=== PATIENT | female | born 1950 | race Caucasian/White ===

== ENCOUNTER 2019-12-23 15:00 | Observation (INO) | payer OTHER, SELFPAY ==
[2019-12-21 11:44] VITALS: BMI 25.9
[2019-12-22] VITALS (15 sets, daily range): BP systolic 115–158; BP diastolic 59–91; PULSE 49–64; RESP 11–20; TEMP 35.7–36.6; O2SAT 90–100; BMI 25.2
--- NOTE | 2019-12-22 06:00 | DI.RAD.S_ITS ---
PROCEDURE: XR KNEE LT 1TO2V INDICATIONS: post op films TECHNIQUE: 2 view(s) of the knee acquired. COMPARISON: [facility] [place], XR KNEE ARTHRITIC SERIES LT, 11/30/2019, 10:07. FINDINGS: Bones: Patient is status post knee joint arthroplasty. Hardware components are in expected positions. Visualized bony structures are intact. Soft tissues: Overlying postoperative changes are noted. IMPRESSION: Status post knee arthroplasty as above. Dictated by: Shantal Villarreal M.D. on 12/22/2019 at 16:25 Approved by: Shantal Villarreal M.D. on 12/22/2019 at 16:25
[2019-12-22] MEDS: LACTATED RINGERS 1,000 ML 42 ML IV ×2 (10:54→14:34)
[2019-12-22] MEDS: ACETAMINOPHEN 325 MG TABLET 975 MG PO (11:06)
[2019-12-22] MEDS: MELOXICAM 7.5 MG TABLET 15 MG PO (11:07)
[2019-12-22] MEDS: PREGABALIN 75 MG CAPSULE PO (11:07)
--- NOTE | 2019-12-22 11:42 | SUR.PREOP ---
Family at bedside and supportive. No needs voiced at this time.
--- NOTE | 2019-12-22 12:32 | PM.PREOP ---
Pre-operative Note Interval Note History & Physical reviewed/Exam performed by Physician: Yes Changes to H&P: No H&P completed within 30 days and has changed as indicated here:: Plan for L TKA
--- NOTE | 2019-12-22 12:38 | SUR.PREOP ---
Patient ambulating to bathroom with minimal assistance.
[2019-12-22] MEDS: CEFAZOLIN 2 GM/100 ML FROZ.PIGGY IV ×2 (13:05→21:51)
--- NOTE | 2019-12-22 13:35 | SUR.OPER ---
Supine on padded OR bed. Pillow under head, arms secured on padded armboards <90 degree abduction. Safety belt across torso. Non-operative leg secured with tape over blanket over lower leg. Operative leg on attachable roll bar and blankets.
[2019-12-22] MEDS: TRANEXAMIC ACID 1,000 MG VIAL 1000 MG INJ ×2 (13:46→14:52)
[2019-12-22] MEDS: ROPIVACAINE 0.5% PF 5 MG/ML 20ML VIAL 60 ML INJ (13:47)
[2019-12-22] MEDS: MORPHINE 4 MG/ML INJ INJ (13:47)
[2019-12-22] MEDS: KETOROLAC 30 MG/ML VIAL IV (13:48)
[2019-12-22] MEDS: SODIUM CHLORIDE IRRIG SOLUTION 250 ML, POVIDONE-IODINE SPONGE STICKS 1 APPLIC IRR (13:49)
--- NOTE | 2019-12-22 14:53 | PM.OP.1 ---
Operative Date/Time/Diagnoses Date of procedure: 12/22/19 Time of procedure: 14:53 Pre-op diagnosis: L knee OA Post-op diagnosis: same Procedure & Clinicians Procedure: L TKA Same procedure as scheduled: Yes Indications: Left knee OA Surgeon: Celestino Daniels Control Operator: Rozina Ramirez Anesthesia Type: Spinal Operative Notes Findings: Left knee OA Closure Type: primary Specimen(s): none sent Prosthetic devices, grafts, tissues, transplants, or devices: [employer] Nephew Journey II CR size 6 left femur size 4 left tibia 10 mm CS poly 29mm oval patellar button Estimated Blood Loss (mL): 100 Blood products transfused: none Tourniquet time (min): 60 Procedure in detail: Patient was met in the preoperative holding area with the site and side of surgery marked by MD all last minute questions were answered. Patient was then brought back in the operating room where she was given a spinal anesthetic and placed supine on operating room table. A nonsterile tourniquet was placed on left thigh left lower extremity was then prepped and draped normal sterile fashion. A surgical time-out was performed verifying the site and side of surgery as well as the name of the patient. The left leg was then exsanguinated using Esmarch and the tourniquet was insufflated to 250 mm of mercury. A longitudinal incision over the left knee was then made 10. Blade through skin followed by a new 10 blade down to the level of the quadriceps tendon. Medial and lateral flaps were then elevated. A medial parapatellar arthrotomy was then performed. Hoffa's fat pad was then excised as well as a medial peel performed using a electrocautery. At this point the ACL was then removed and the lateral meniscus was excised. Femur and tibia were drilled sequentially. The 5 degree femoral cutting block was then placed. A neutral cut through the femoral cutting block was made, as the patient had a 3-5 degree flexion contracture preoperatively The intramedullary tibial ghada was then placed and the 3 degree posterior slope cutting block was positioned. Alignment was verified using a drop ghada. This was pinned in place and the tibia cut was performed. The knee was then brought into full extension and a 9 mm extension block was placed. Knee was stable in varus and valgus and was reaching full extension. This point the femoral and tibial pins were removed. The knee was then brought into flexion and the elementary school science teacher was then placed the femur was sized to a size 6 and the femoral cutting block drill holes were placed. Balance was then removed and a metal ruler was were used to verify that there is external rotation to the femoral cutting block holes. Size 6 femoral cutting block was then placed and the 5 cuts were made. A size 6 femoral trial was then placed followed by a size 5 tibial trial with a 9 mm thick polyethylene. Overall good medial to lateral balance and full extension was achieved. Tibial rotation was used marked using a floating technique. The patella was then freehand cut and drilled for a 29 mm patellar button. Knee was brought through range of motion there was a little bit all the medial liftoff of the patellar button a small lateral release was performed which rectify the issue. The femoral trial component was then removed as was the polyethylene trial. At this point there is a little bit overhang with the size 5 tibia selected a size 4 tibia which appeared to be appropriately sized the tibia was prepped for a size 4. Local injection was then placed throughout the knee taking special care in the posterior capsule. The cut surface of the tibia femur and patella were then pulse lavaged and dried. Cement was placed on the tibia and finger packed cement was also placed on the back of the tibial tray and this was then placed and malleted into place. Excess cement was removed cement was then finger packed onto the cut ends of the femur with the exception of the posterior cuts. Some was placed on the posterior condylar feet of the femoral prosthesis. This was then placed and malleted from into place. All excess cement was then removed set was then placed on the cut surface of the patella and patellar button was then clamped in place all excess cement was removed. The was then brought into full extension the lower leg was held in internal rotation and iodine soaked was then introduced to the wound and allowed to sit while the cement cured. Once cement was cured pulse lavage was used to remove the iodine from wound the knee was brought through range of motion and checked for debris. A 10 mm thick poly was also trialed which fit better. This was selected as our final size. The 10 mm poly was then inserted. I then removed the overhanging bone over the lateral edge of the femoral condyle. Medial parapatellar arthrotomy was closed using 1. Vicryl in interrupted fashion followed by a running Quill suture. Subcutaneous tissue was then closed using 2 Vicryl interrupted fashion followed by stratafix in the subcuticular layer followed by Aquacel dressing. Complications: none Post-operative Condition: stable Disposition: PACU Plan for aftercare: Weightbearing as tolerated left lower extremity. Aspirin 81 mg b.i.d. for 6 weeks. Plan is for discharge to home tomorrow.
[2019-12-22] MEDS: ONDANSETRON 4 MG/2 ML INJ IV ×2 (16:45→21:51)
[2019-12-22] MEDS: LACTATED RINGERS 1,000 ML 125 ML IV ×2 (16:46→23:30)
[2019-12-22 18:00] LABS: Add Manual Diff / Slide Review NO; Basophils Absolute Auto 0 /uL (0-100); Basophils Percent Auto 0.5 % (0-2); Eosinophils Absolute Auto 100 /uL (0-450); Eosinophils Percent Auto 1.2 % (2-4); Hematocrit 40.2 % (36-46); Hemoglobin 13.6 g/dL (12.0-16.0); Lymphocytes Absolute Auto 1700 /uL (1100-4500); Lymphocytes Percent Auto 28.9 % (25-40); Mean Corpuscular HGB Conc 33.8 % (30-36); Mean Corpuscular Hemoglobin 32.9 PG (26-34); Mean Corpuscular Volume 97.4 fL (80-100); Monocytes Absolute Auto 400 /uL (0-900); Neutrophils Absolute Auto 3800 /uL (1500-7000); Neutrophils Percent Auto 63.4 % (50-75); Platelet Count 262 X10^3/uL (150-400); Red Blood Cell Count 4.13 X10^6/uL (4.0-5.2); Red Cell Distribution Width 12.1 % (11.6-14.8); White Blood Cell Count 5.9 X10^3/uL (4.5-11.0)
[2019-12-22] MEDS: METOCLOPRAMIDE 10 MG/2 ML INJ IV (20:12)
[2019-12-22] MEDS: DOCUSATE 100 MG CAPSULE PO (21:51)
[2019-12-22] MEDS: ACETAMINOPHEN 325 MG TABLET 650 MG PO (21:51)
[2019-12-22] MEDS: ASPIRIN EC 81 MG TABLET PO (21:51)
[2019-12-23] VITALS (10 sets, daily range): BP systolic 127–156; BP diastolic 73–84; PULSE 59–76; RESP 14–20; TEMP 35.8–37.4; O2SAT 87–100
[2019-12-23] MEDS: CEFAZOLIN 2 GM/100 ML FROZ.PIGGY IV (04:51)
[2019-12-23 06:48] LABS: Hematocrit 36.5 % (36-46); Hemoglobin 12.4 g/dL (12.0-16.0)
--- NOTE | 2019-12-23 07:46 | P.PN_ITS ---
Subjective Subjective Date Patient Seen: 12/23/19 Time Patient Seen: 07:30 Interval history: POD #1 s/p LTKA with Dr. Daniels. Overnight had one episode of emesis. Has resolved, denies nausea/vomiting. Patient is doing well, complains of mild pain in left knee. Voiding without difficulty or assistance. Has not mobilized with PT. Denies fever, chills, chest pain, shortness of breath. Exam Vital Signs (past 8 hours): - 12/23/19 04:20 12/23/19 04:56 Temperature 96.4 F L Pulse Rate 59 L Respiratory Rate 16 Blood Pressure 127/73 Pulse Oximetry 100 99 Oxygen Delivery Method Nasal Cannula Oxygen Flow Rate 0 Narrative Exam Narrative: 69 yo F is laying comfortably in bed, in no apparent distress. A&Ox3. Dressing CDI, SCDs in place. Able to actively dorsiflex/plantar flex BL. Sensory function grossly intact to light touch in LE BL. Calves warm, soft, compressible, non tender to palpation BL. Dorsalis pedis 2+ BL. Objective Labs Result Diagrams: 12/23/19 06:03 Labs: Laboratory Results - last 24 hr 12/22/19 12/23/19 17:28 06:03 WBC 5.9 RBC 4.13 Hgb 13.6 12.4 Hct 40.2 36.5 MCV 97.4 MCH 32.9 MCHC 33.8 RDW 12.1 Plt Count 262 Neut % (Auto) 63.4 Lymph % (Auto) 28.9 [place] % (Auto) 6.0 Eos % (Auto) 1.2 L Baso % (Auto) 0.5 Neut # (Auto) 3800 Lymph # (Auto) 1700 [place] # (Auto) 400 Eos # (Auto) 100 Baso # (Auto) 0 Assessment & Plan Post-op Postoperative Procedures: Procedures Operation Date: 12/22/19 13:00 Actual Procedures Side Surgeon p Total Knee Arthroplasty Left Celestino Daniels MD Postoperative day: 1 Postoperative status: doing well Postoperative plan: discharge Postoperative plan narrative: Discharge home today pending physical therapy clearance Patient has oxycodone 5mg at home, requests additional medication because she will be in [place] for 2 weeks and worries about running out. I prescribed an additional #20 tabs to the #40 given at pre-op. Aspirin 81mg BID for 6 weeks for DVT prophylaxis Follow up in clinic in 2 weeks Start outpatient PT in 1 week Time Spent With Patient Time with patient: less than 15 minutes Quality VTE Deep Vein Thrombosis/Pulmonary Embolism Present on Admission: No
[2019-12-23] MEDS: ACETAMINOPHEN 325 MG TABLET 650 MG PO ×3 (08:26→22:08)
[2019-12-23] MEDS: atenoloL 50 MG TABLET 100 MG PO (08:27)
[2019-12-23] MEDS: ASPIRIN EC 81 MG TABLET PO ×2 (08:27→22:09)
[2019-12-23] MEDS: lisinopriL 20 MG TABLET 40 MG PO (08:28)
[2019-12-23] MEDS: DOCUSATE 100 MG CAPSULE PO ×2 (08:28→22:08)
[2019-12-23] MEDS: hydroCHLOROthiazide 25 MG TABLET PO (08:28)
[2019-12-23] MEDS: hydrOXYzine pamoate 25 MG CAPSULE PO ×2 (08:29→22:09)
[2019-12-23] MEDS: OXYCODONE IR 5 MG TABLET PO ×2 (08:29→12:18)
--- NOTE | 2019-12-23 09:05 | CM.DANOTE ---
Addendum entered by Irasema Victor LPN 12/23/19 14:45: Adriana reported that pt did very well in the morning session and was going to go to her brother and sister in law's home in [place] for 10 + days to recover. She planned an afternoon session just to make sure pt was still on track for d/c. Have update now that pt has been in severe pain this afternoon and with RN working to obtain stable pain management. She has not been able to participate is afternoon session yet. UR RN notes status change now to OBS. P: remains d/c to brother's home in [place] when stable for same. Either later today or tomorrow. Will check in the morning and follow accordingly is pt is still here. Addendum entered by Irasema Victor LPN 12/23/19 09:13: Went to room to see pt. Introduced self and role. She and several family members are currently in process of working with PT Adriana for the first eval. Agreed to check in with Adriana after the eval is completed and follow prn for any d/c needs that may be identified. Original Note: Discharge Planning/Care Management DCP: assessment: case received, EMR reviewed. Pt is a 69 year old female who admitted yesterday for a planned L TKA. Payer: [facility] PCP: Kalyn Muhammad (pt lives in [facility]) Admission status: in review: per ASMITA Lee. A d/c order is noted. PT has been ordered but no note is yet available. P: check in with pt and follow for d/c issues and options. CM Discharge Assessment Start: 12/23/19 09:04 Freq: Status: Active Protocol: Document 12/23/19 09:04 ITV (Rec: 12/23/19 09:05 ITV [id number]) Discharge Planning Assessment Advance Directives? No History Provided By Medical Record Prior Living Arrangements House Household Members none Whiteboard Updated in Patient Room with Yes name and ext. # of Steward/Stewardess Night Review Status In Process Pre-Anesthesia Assessment Start: 12/21/19 11:44 Freq: Status: Active Protocol: Document 12/21/19 11:44 CAB (Rec: 12/21/19 12:37 CAB [id number]) Pre-Anesthesia Assessment Patient Information Reviewed Via Chart Review Diagnostic Results BMP/CMP,EKG,Urinalysis Comment Outside labs/EKG scanned to record Primary Care Provider Kalyn Muhammad Medical Clearance Received Yes Seen Specialist in Last 12 Months Yes Specialist Seen Licensed Insurance Sales Agent,Orthopedist Comment PCP clearance scanned in and on surgery folder Primary Language Portuguese Remote Mortgage Underwriter Required No Height 170.18 cm Weight 75.296 kg Body Mass Index (BMI) 25.9 Anesthesia Review Requested No alcohol intake current Alcohol Intake Frequency Other: Occasional, hx of etoh abuse in PCP medical record Smoking Status Never smoker Pain Present Pain Reported Musculoskeletal Symptoms Joint Pain,Joint Swelling Is patient on oxygen? No Does patient have RIDER/SOB No Hx Sleep Apnea No Currently Taking a Beta Ronald Yes: Atenolol Anti-Coagulant Therapy No Has a Licensed Insurance Sales Agent Yes: Dr. Bustillo Hx Pacemaker/ICD No Pacemaker Rep Required? No Cardiac Clearance Received Yes Comment Cardiac clearance scanned and put in surgery folder Urinary Catheter Present No Hx Urinary Self Catheterization No Diabetes No Patient No Lactating No Support System Child/Children
--- NOTE | 2019-12-23 10:12 | PT.IIE ---
Current Diagnoses Unilateral primary osteoarthritis, left knee (12/22/19) Surgery Performed Operation Date: 12/22/19 13:00 Actual Procedures p Total Knee Arthroplasty(Left) - Celestino Daniels MD Surgical History (Last Updated 12/21/19 @ 12:31 by Charity Root RN) History of hysterectomy (Acute) History of surgery (Acute) Medical History (Last Updated 12/21/19 @ 12:31 by Charity Root RN) Alcohol abuse (Acute) Anemia (Acute) Depression (Acute) Herpes (Acute) HTN (hypertension) (Acute) Migraines (Acute) Osteoarthritis (Acute) PSVT (paroxysmal supraventricular tachycardia) (Acute 10/11/19) Physical Therapy Inpatient Evaluation/Re-Eval M1 PT/OT-IP Prior Functional Status Start: 12/23/19 08:46 Freq: NEEDED Status: Active Protocol: Document 12/23/19 09:42 AW (Rec: 12/23/19 10:12 AW [id number]) Medical Review Prior Functional Status Medical History Reviewed Yes Diet/Fluid Consistency Regular Communication WNL Mobility and Gait Pt was modified independent with use of SPC for up to 10- 15 minutes max or with 4WW for 30 minutes at a time. Activities of Daily Living and IADL's Indpendent with all ADL/IADL's . However, pt admits recent difficulty with lower body dressing tasks. Social History Household Members none Living Arrangements House Number of Floors (Floors) Two Floors Number of Stairs To Enter/Railing? Pt will be discharging directly to her brother and depqbq-nz-aln's house in [place]. All details in this note refer to the discharge setting - not to the pt's home in [place]. 1 JIGNESH on main level, no railing. 15 steps with left rail descending from main level down to basement where pt had planned to stay. However, pt is able to stay on main level if needed. Alternatively, she can access the basement on an outdoor gently sloped path to the back of the house. Family states the path is partially paved, partially grass, and partially packed gravel. 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 She will be discharging to her brother and jrdcwl-wi-ecy's home in [place] where she will stay for 10 days or longer if needed. M2 PT-IP Current Condition Start: 12/23/19 08:46 Freq: NEEDED Status: Active Protocol: Document 12/23/19 09:42 AW (Rec: 12/23/19 10:12 AW [id number]) Physical Therapy Current Condition Current Condition Evaluation Date 12/23/19 Treatment Diagnosis L TKA; impaired mobility Onset Date 12/22/19 Weight Bearing Status Weight Bearing Status Weight Bear as Tolerated M3 PT-IP Subjective Start: 12/23/19 08:46 Freq: NEEDED Status: Active Protocol: Document 12/23/19 09:42 AW (Rec: 12/23/19 10:12 AW [id number]) Subjective Physical Therapy Visit Type Type Initial Evaluation Visit Start Time 08:54 Visit Stop Time 09:37 Total Visit Minutes 43 Notes Pt's family arrived intermediate [facility], observed the mobility assessment and asked appropriate questions about how to assist the pt. Number of WAREHOUSE GENERAL LABORER Visits 0 Physical Therapy Visit Comments Patient Comments Pt feeling ready to try to walk Patient Goals Plans to discharge to her brother's home for assistance. Ultimately hopes to return to work as standing/walking tolerance improves. Therapy Pain Assessment Pain When Pain Assessed During Mobility Location Left Anterior Knee Intensity 6 Scale Used 5/10 at rest; 6/10 with mobility Pain Management Techniques Apply Cold,Timing of Activity with Medications M4 PT-IP Mobility and Gait Start: 12/23/19 08:46 Freq: NEEDED Status: Active Protocol: Document 12/23/19 09:42 AW (Rec: 12/23/19 10:12 AW [id number]) PT-Bed Mobility Assessment Supine to Sit Supine to Sit Standby Assistance Scooting Scooting to Edge of Bed Standby Assistance PT-Transfer Assessment Sit to and From Stand Sit to and from Stand Contact Guard Assistance,1 Person Assistance,Use of Upper Extremities Equipment Transfer Assistive Device Gait Belt,Front Wheeled Walker Orthotic/Prosthetic Devices or Brace: No Transfers Transfer Destination Chair Transfer Technique pt ambulated with FWW Transfer Ability Level of Assist Contact Guard Assistance,Use of Upper Extremities Comments Mobility Comments From flattened bed, pt completed supine to sit with verbal cues for moving her operative leg with assist from nonoperative leg SBA. She sat EOB without UE support and stood using FWW CGA and cues for positioning of the LLE. She ambulated in the halls and returned to the room to transfer to the chair SBA, demonstrating good eccentric control of descent. She was positioned in the chair with fresh ice packs applied, call light and table within reach, family in room visiting. Gait Assessment Gait Gait Assistance Required: Standby Assistance Distance (Feet) 200 Able to Maintain Weight Bearing Status Yes During Gait Assistive Devices Assistive Device Gait Belt,Front Wheeled Walker Orthotic/Prosthetic Devices or Brace: No Gait Deviations General Gait Pattern Antalgic,Decreased Stride Length,Decreased Feet Clearance,Flexed Trunk,Step-to Gait Factors Limiting Gait Function Factors Limiting Gait Function Decreased Activity Tolerance, Decreased Strength,Limited Range of Motion,Pain Comments Gait Comments Pt ambulated in the halls with FWW SBA. Gait was characterized by toe walking and step-to pattern initially. Pt was able to correct to flat foot landing and swing- through pattern with decreased step length in response to verbal cues. Stair Climbing Assessment Evaluation Level of Assist On Stairs Standby Assistance,Contact Guard Assistance,1 Person Assistance Devices Stair Climbing Assistive Devices Left Railing,Right Railing Technique/Endurance Stair Climbing Direction Ascend and Descend Stair Climbing Technique Step to Step Number of Steps Climbed 3 Query Text: Stair Climbing Set # Repetitions (reps) 2 Comments Stair Climbing Comments Pt completed first set using B rails SBA. She attempted second set with only right rail ascending but was unable, finishing with B rails. Will attempt stairs with right rail ascending and SPC in opposite hand at afternoon session. PT-Balance Assessment Sitting Balance and Reactions Static Sitting Balance Ability Normal Dynamic Sitting Balance Ability Normal Standing Balance and Reactions Static Standing Balance Ability Good Dynamic Standing Balance Ability Good Device Used FWW M5 PT-IP Objective Assessments Start: 12/23/19 08:46 Freq: NEEDED Status: Active Protocol: Document 12/23/19 09:42 AW (Rec: 12/23/19 10:12 AW [id number]) Orientation Orientation/Cognition Level of Alertness Alert Orientation Name,Day of Week,Place, Situation Language Function Ability No Deficits Noted Safety Awareness Understands Safety Issues Memory Description No Deficits Noted Gross Range of Motion Upper Extremity ROM Assessment Within Functional Limits Lower Extremity ROM Assessment Within Functional Limits Strength Upper Extremity Strength Assessment Within Functional Limits Comments Strength Comments RLE grossly 4+/5 Coordination Assessment Gross Coordination Gross Coordination WNL Sensation Assessment Sensation Gross Sensation WNL M6 PT-IP Treatment Start: 12/23/19 08:46 Freq: NEEDED Status: Active Protocol: Document 12/23/19 09:42 AW (Rec: 12/23/19 10:12 AW [id number]) Physical Therapy Treatment Exercises Exercises Ankle Pumps,Quad Sets,Heel Slides,Passive Knee Extension Hang Education Education Provided Precautions,Weight Bearing Status,Post-Op Packet,Safety M7 PT-IP Assessment and Plan Start: 12/23/19 08:46 Freq: NEEDED Status: Active Protocol: Document 12/23/19 09:42 AW (Rec: 12/23/19 10:12 AW [id number]) PT Summary Assessment and Plan Potential Rehabilitation Potential Excellent Status of Condition at Evaluation Stable Summary Impairments Pain,ROM,Strength,Balance,Bed Mobility,Transfers,Gait, Activity Tolerance Assessment Summary Kathy is a 69 yo woman seen for PT evaluation on POD1 following L TKA. At recent baseline, she has been modified independent with use of 4WW or SPC depending on situation. She required SBA to CGA for all mobility - including stairs - on evaluation and will benefit from one more actute PT session before discharge with medical clearance. PT recommends she plan to either stay on the main level for the first few days or to use the outside path to access the basement. Once cleared, she will be safe to discharge to her brother and nidwts-rw-zlq' s home with their assist and with outpatient PT which is already set up. Goals Bed Mobility Goal Independent Transfer Goal Independent,Front Wheeled Walker Gait Goal Independent,Front Wheel Walker Gait Distance 200 Other Goals - up/down 1 step with FWW SBA - practice stairs using R rail ascending and SPC for eventual stair climbing in d/c setting Days to Meet Goals 1 Frequency of Treatment Frequency Of Treatment Twice a Day Treatment Plan Physical Therapy Treatment Plan Bed Mobility Training,Transfer Training,Gait Training, Therapeutic Exercise,Balance Retraining,Post Op Education, Discharge Planning,Hot or Cold Pack,Neuromuscular Re-ed, Coordination Retraining,Manual Therapy Other Recommendations and Next Treatment stair training with family Focus Recommendations To Nursing Amount of Assist Needed Standby Assistance Discharge Recommendations PT Discharge Recommendations Home with Assistance, Outpatient PT Transportation Needs at Discharge Private Vehicle
[2019-12-23] MEDS: HYDROMORPHONE 0.5 MG INJ 0.2 MG IV ×4 (13:08→22:57)
[2019-12-23] MEDS: OXYCODONE IR 5 MG TABLET 10 MG PO ×3 (15:37→22:57)
[2019-12-23] MEDS: ONDANSETRON 4 MG/2 ML INJ IV (15:37)
[2019-12-23] MEDS: HYDROMORPHONE 0.5 MG INJ IV (15:38)
--- NOTE | 2019-12-23 16:13 | PC.NURSE ---
Pt expressed concern this morning regarding swelling in Left leg with mild pain; PO oxycodone administered with breakfast; @ 1200 patient reports severe pain; PO oxycodone; severe pain continues; IV dilaudid X2; c/m/s positive; PPP; swelling to left leg WNL; Message to PA faxed to surgery; @ 1500 PONCHO Muro ordered increase in Oxycodone and IV dialudid NoW dose
--- NOTE | 2019-12-23 16:25 | PT.IPTN ---
Current Diagnoses Unilateral primary osteoarthritis, left knee (12/23/19) Surgery Performed Operation Date: 12/22/19 13:00 Actual Procedures p Total Knee Arthroplasty(Left) - Celestino Daniels MD Physical Therapy Treatment Note M2 PT-IP Current Condition Start: 12/23/19 08:46 Freq: NEEDED Status: Active Protocol: Document 12/23/19 09:42 AW (Rec: 12/23/19 10:12 AW [id number]) Physical Therapy Current Condition Current Condition Evaluation Date 12/23/19 Treatment Diagnosis L TKA; impaired mobility Onset Date 12/22/19 Weight Bearing Status Weight Bearing Status Weight Bear as Tolerated M3 PT-IP Subjective Start: 12/23/19 08:46 Freq: NEEDED Status: Active Protocol: Document 12/23/19 14:05 SP (Rec: 12/23/19 17:09 SP [email or web address]) Subjective Physical Therapy Visit Type Type Treatment Note Visit Start Time 14:05 Visit Stop Time 16:25 Total Visit Minutes 29 Notes Pt required split treatment ( 1405- 1420, [id number]) secondary to pain in L knee. Pt's family observed transfer chair to bed with report of increased pain needing to lay down first visit. Number of LIVESTOCK FARM MANAGER Visits 1 Physical Therapy Visit Comments Patient Comments I need to lay down, I am in so much pain sitting in this chair. I am not going to be able to do the stairs or caregiver training right now. Patient Goals Current goal is to get pain under control to be able to discharge to her brother's home for assistance. Ultimately hopes to return to work as standing/walking tolerance improves. Therapy Pain Assessment Pain When Pain Assessed At Rest Pain Present Pain Present Pain Reported Location Left Anterior Knee Intensity 10 Scale Used 10/10 at rest and mobility. Pain Management Techniques Apply Cold,Modification of Treatment,Re-positioning, Timing of Activity with Medications M4 PT-IP Mobility and Gait Start: 12/23/19 08:46 Freq: NEEDED Status: Active Protocol: Document 12/23/19 14:05 SP (Rec: 12/23/19 17:09 SP [email or web address]) PT-Bed Mobility Assessment Sit to Supine Sit to Supine Moderate Assistance,1 Person Assistance,Bedrails PT-Transfer Assessment Sit to and From Stand Sit to and from Stand Minimal Assistance,1 Person Assistance,Use of Upper Extremities Equipment Transfer Assistive Device Gait Belt,Front Wheeled Walker Orthotic/Prosthetic Devices or Brace: No Transfers Transfer Destination Bed Transfer Technique Stand Step Pivot Transfer Ability Level of Assist Contact Guard Assistance,Use of Upper Extremities Comments Mobility Comments Pt was reclined up in chair when arrived reporting 10/10 pain in L knee. Pt stated she is not going to be able to do any caregiver training, gait or stair mgt when arrived. Pt requested need to get back to bed to put leg up and possible help with pain in L knee. Sit to stand Min A using FWW, CGA with cuing for body and FWW positioning around corner of the chair and side step up EOB . Pt requried Mod A for LLE into bed while used bed rails to support trunk stability. Pt required full LLE assist lift to position pillows under for comfort and ice pack on L knee for assist pain control. Nursing has been assisting patient with meds for pain as well. LIVESTOCK FARM MANAGER discussed would return later to assess further progression with agreement. Pt was laying in bed with alarm armed, call light and all needs in reach, Family member in room when left. LIVESTOCK FARM MANAGER returned approx 2 hrs later and stated little less but still L knee still pretty painful, agreed to assist with repositioning onto R then L side for comfort and cold pack donning. Pt very restless, declined cold pack for now and propped legs with pillows for comfort with minimal success. Pt had call light and all needs inreach with bed alarm continue armed. LIVESTOCK FARM MANAGER communicated with DC planning team x2 for updates on patient progress in PT, reported will be changed to OBS and continued stay tonight . Gait Assessment Gait Gait Assistance Required: Contact Guard Assist Distance (Feet) 2 Able to Maintain Weight Bearing Status Yes During Gait Assistive Devices Assistive Device Gait Belt,Front Wheeled Walker Orthotic/Prosthetic Devices or Brace: No Gait Deviations General Gait Pattern Antalgic,Decreased Stride Length,Decreased Feet Clearance,Flexed Trunk,Step-to Gait Factors Limiting Gait Function Factors Limiting Gait Function Decreased Activity Tolerance, Decreased Strength,Limited Range of Motion,Pain,Poor Balance Comments Gait Comments Pt transferred chair to bed step to gait with cuing for obstacle mgt using FWW around chair 2 ft, CGA for safety, cued for LLE repostioning and try to knee bend. Stair Climbing Assessment Comments Stair Climbing Comments unable to assess secondary to pain 10/10 PT-Balance Assessment Sitting Balance and Reactions Static Sitting Balance Ability Normal Dynamic Sitting Balance Ability Normal Standing Balance and Reactions Static Standing Balance Ability Fair Dynamic Standing Balance Ability Poor Device Used FWW M5 PT-IP Objective Assessments Start: 12/23/19 08:46 Freq: NEEDED Status: Active Protocol: Document 12/23/19 09:42 AW (Rec: 12/23/19 10:12 AW [id number]) Orientation Orientation/Cognition Level of Alertness Alert Orientation Name,Day of Week,Place, Situation Language Function Ability No Deficits Noted Safety Awareness Understands Safety Issues Memory Description No Deficits Noted Gross Range of Motion Upper Extremity ROM Assessment Within Functional Limits Lower Extremity ROM Assessment Within Functional Limits Strength Upper Extremity Strength Assessment Within Functional Limits Comments Strength Comments RLE grossly 4+/5 Coordination Assessment Gross Coordination Gross Coordination WNL Sensation Assessment Sensation Gross Sensation WNL M6 PT-IP Treatment Start: 12/23/19 08:46 Freq: NEEDED Status: Active Protocol: Document 12/23/19 14:05 SP (Rec: 12/23/19 17:09 SP [email or web address]) Physical Therapy Treatment Education Education Provided Precautions,Weight Bearing Status,Post-Op Packet,Safety M7 PT-IP Assessment and Plan Start: 12/23/19 08:46 Freq: NEEDED Status: Active Protocol: Document 12/23/19 14:05 SP (Rec: 12/23/19 17:09 SP [email or web address]) PT Summary Assessment and Plan Potential Rehabilitation Potential Excellent Status of Condition at Evaluation Stable Summary Impairments Pain,ROM,Strength,Balance,Bed Mobility,Transfers,Gait, Activity Tolerance Assessment Summary Pt decreased activity tolerance this afternoon secondary to L knee pain at rest and WB. Nursing assisted patient with pain meds to support and PT provided cold pack withminimal success. Provided split session. See mobility comments. She required Min sit to stand, CGA pivot tranfer using FWW and Mod- M ax A of LLE into bed and repositioning in bed for comfort positioning. Pt will benefit from one more actute PT session before discharge for gait, stair mgt. PT recommends she plan to either stay on the main level for the first few days or to use the outside path to access the basement. Once cleared, she will be safe to discharge to her brother and zsmhfr-kd-oro' s home with their assist and with outpatient PT which is already set up. Goals Bed Mobility Goal Independent Transfer Goal Independent,Front Wheeled Walker Gait Goal Independent,Front Wheel Walker Gait Distance 200 Other Goals - up/down 1 step with FWW SBA - practice stairs using R rail ascending and SPC for eventual stair climbing into her basement appt in d/c setting Days to Meet Goals 1 Frequency of Treatment Frequency Of Treatment Twice a Day Treatment Plan Physical Therapy Treatment Plan Bed Mobility Training,Transfer Training,Gait Training, Therapeutic Exercise,Balance Retraining,Post Op Education, Discharge Planning,Hot or Cold Pack,Neuromuscular Re-ed, Coordination Retraining,Manual Therapy Other Recommendations and Next Treatment gait and stair training with Focus family caregiving trng continue. Recommendations To Nursing Amount of Assist Needed 1 Person Assist Discharge Recommendations PT Discharge Recommendations Home with Assistance, Outpatient PT Transportation Needs at Discharge Private Vehicle
[2019-12-23] MEDS: IBUPROFEN 400 MG TABLET PO ×2 (17:17→22:09)
[2019-12-24] MEDS: OXYCODONE IR 5 MG TABLET 10 MG PO ×5 (02:30→15:50)
[2019-12-24] MEDS: IBUPROFEN 400 MG TABLET PO ×3 (02:33→22:14)
[2019-12-24] MEDS: HYDROMORPHONE 0.5 MG INJ 0.2 MG IV (05:05)
[2019-12-24 05:09] VITALS: BP 136/65; PULSE 71; RESP 18; TEMP 36.2; O2SAT 99
[2019-12-24 08:00] VITALS: BP 143/70; PULSE 67; RESP 18; TEMP 36.2; O2SAT 94
--- NOTE | 2019-12-24 08:12 | PM.PNPO.1 ---
Subjective Subjective Date Patient Seen: 12/24/19 Time Patient Seen: 08:00 Interval history: POD #2 s/p LTKA with Dr. Daniels. Patient complains of moderate-severe pain in left knee. Yesterday, given IV dilaudid and oxycodone 10mg - patient reported mild relief and fell asleep. Voiding without difficulty or assistance. Mobilizing slowly with PT secondary to pain. Denies fever, chills, chest pain, shortness of breath. Exam Vital Signs (past 8 hours): - 12/24/19 05:09 Temperature 97.1 F L Pulse Rate 71 Respiratory Rate 18 Blood Pressure 136/65 Pulse Oximetry 99 Oxygen Delivery Method Nasal Cannula Oxygen Flow Rate 1 Narrative Exam Narrative: 69 yo F is laying comfortably in bed, in no apparent distress. A&Ox3. Dressing CDI, SCDs in place. Able to actively dorsiflex/plantar flex BL. Sensory function grossly intact to light touch in LE BL. Calves warm, soft, compressible, non tender to palpation BL. Dorsalis pedis 2+ BL. Objective Labs Result Diagrams: 12/23/19 06:03 Assessment & Plan Post-op Postoperative Procedures: Procedures Operation Date: 12/22/19 13:00 Actual Procedures Side Surgeon p Total Knee Arthroplasty Left Celestino Daniels MD Postoperative day: 2 Postoperative status: marginal pain control Postoperative plan: routine post-op care Postoperative plan narrative: Continue current pain management - may change if PT session in AM is marginal secondary to pain SCDs and ASA 81mg BID for DVT prophylaxis Discharge likely in next 24-48 hours Time Spent With Patient Time with patient: less than 15 minutes Quality VTE Deep Vein Thrombosis/Pulmonary Embolism Present on Admission: No
[2019-12-24] MEDS: ACETAMINOPHEN 325 MG TABLET 650 MG PO ×3 (08:48→22:14)
[2019-12-24] MEDS: DOCUSATE 100 MG CAPSULE PO ×2 (08:49→22:13)
[2019-12-24] MEDS: ASPIRIN EC 81 MG TABLET PO ×2 (08:49→22:14)
[2019-12-24] MEDS: lisinopriL 20 MG TABLET 40 MG PO (08:49)
--- NOTE | 2019-12-24 08:53 | PT.IPTN ---
Current Diagnoses Unilateral primary osteoarthritis, left knee (12/23/19) Surgery Performed Operation Date: 12/22/19 13:00 Actual Procedures p Total Knee Arthroplasty(Left) - Celestino Daniels MD Physical Therapy Treatment Note M2 PT-IP Current Condition Start: 12/23/19 08:46 Freq: NEEDED Status: Active Protocol: Document 12/23/19 09:42 AW (Rec: 12/23/19 10:12 AW [id number]) Physical Therapy Current Condition Current Condition Evaluation Date 12/23/19 Treatment Diagnosis L TKA; impaired mobility Onset Date 12/22/19 Weight Bearing Status Weight Bearing Status Weight Bear as Tolerated M3 PT-IP Subjective Start: 12/23/19 08:46 Freq: NEEDED Status: Active Protocol: Document 12/24/19 08:12 SP (Rec: 12/24/19 11:42 SP [id number]) Subjective Physical Therapy Visit Type Type Treatment Note Visit Start Time 08:12 Visit Stop Time 08:53 Total Visit Minutes 41 Number of MANAGER MAIL Visits 2 Physical Therapy Visit Comments Patient Comments Pt willing to work with PT, stated pain level in L knee less 5/10. Patient Goals To move better on her feet with controlled pain and possibly discharge to her brother's house for assistance today. Therapy Pain Assessment Pain When Pain Assessed At Rest Pain Present Pain Present Pain Reported Location Left Anterior Knee Intensity 5 Scale Used 5/10 at rest, increased 8/10 with mobility Pain Management Techniques Re-positioning,Timing of Activity with Medications M4 PT-IP Mobility and Gait Start: 12/23/19 08:46 Freq: NEEDED Status: Active Protocol: Document 12/24/19 08:12 SP (Rec: 12/24/19 11:42 SP [id number]) PT-Bed Mobility Assessment Sit to Supine Sit to Supine Moderate Assistance,1 Person Assistance PT-Transfer Assessment Sit to and From Stand Sit to and from Stand Contact Guard Assistance,1 Person Assistance,Use of Upper Extremities Equipment Transfer Assistive Device Gait Belt,Front Wheeled Walker Orthotic/Prosthetic Devices or Brace: No Transfers Transfer Technique Pt ambulated using fWW Transfer Ability Level of Assist Contact Guard Assistance,Use of Upper Extremities Comments Mobility Comments Pt was seated in chair when arrived, willing to work with PT. Sit to stand CGA with heavy BUE good hand placement push up from chair with LLE out in front with use of FWW, hip hike to reposition LLE under her into standing, almost no knee flexion demonstrated. Pt reports to painful to bend L knee in anyway and demonstrates extension through all activity . MANAGER MAIL educated as long as can tolerated to some extent importance of allowing knee flexion ROM importance for functional mobility with verbal understanding. Pt ambulated chair in room to stairs approx 114 ft using FWW , recommended seated rest for decreased strength and rest but pt declined, 3 stopped stand rests during distance. Pt complete 1 platform step using FWW and 3 stairs using LHR and SPC RUE then welcomed seated rest in w/c for recovery of increased 8/10 L knee pain. Pt did report R hip discomfort during stair mgt but tolerable. Pt walked 5 ft in room w/c back to bed and sat at EOB usign FWW CGA. Sitting to supine Mod A for LLE into bed HOB flat. Pt required decreased support for LLE repositioning to center in bed Min support. Did not need pillow support for comfort once in supine. Pt had call light and all needs in reach and bed alarm on when left. Gait Assessment Gait Gait Assistance Required: Standby Assistance,Contact Guard Assist Distance (Feet) 114 Able to Maintain Weight Bearing Status Yes During Gait Assistive Devices Assistive Device Gait Belt,Front Wheeled Walker Orthotic/Prosthetic Devices or Brace: No Gait Deviations General Gait Pattern Antalgic,Decreased Stride Length,Decreased Feet Clearance,Flexed Trunk,Step-to Gait Factors Limiting Gait Function Factors Limiting Gait Function Decreased Activity Tolerance, Decreased Strength,Limited Range of Motion,Pain Comments Gait Comments Pt was able to walk further distance using fWW CGA initially then decreased to SBA step to gait patterning. MANAGER MAIL educated awareness increase L knee flexion to tolerance for normal gait phases and progress functional ROM but demonstrated hip hike, peg leg with DF for foot clearance and advancement, she stated it hurts to much to bend the knee, I really can 't. MANAGER MAIL trailed w/c during gait secondary to decreased strength and activitiy tolerance unsure pain tolerance and encouraged WB tolerated. Pt declined seated rest during walk to stairs I don't want to sit because it will make my knee hurt to much to bend. Pt required seated rest and push back to room after stair mgt secondary to L knee pain increase 8/10. Stair Climbing Assessment Evaluation Level of Assist On Stairs Contact Guard Assistance, Minimal Assistance,1 Person Assistance Devices Stair Climbing Assistive Devices Front Wheel Walker,Left Railing,Right Railing Technique/Endurance Stair Climbing Direction Ascend and Descend Stair Climbing Technique Step to Step Number of Steps Climbed 3 Stair Climbing Set # Repetitions (reps) 1 Comments Stair Climbing Comments Pt was able to ascend descend 1 platform step using FWW to assimulate 1 step enterance to brother's house CGA- Astrid with cuing as needed for RLE ascend with good follow through. Ascend/descend 3 stairs L HR and SPC in R hand (min suppport to steady SPC) Min A to reassess possible use of inside stairs to basement room if stays down there (12- 15 total required). Pt is not able to ascend full flight of stairs at this time but stated can sleep in recliner in living room on main enterance after entering front 1 step enterance or walk around outside uneven terrain (grass/ gravel) with side person support as needed to get to base appt/room with no step enterance and family to bring needs to her. PT-Balance Assessment Sitting Balance and Reactions Static Sitting Balance Ability Normal Dynamic Sitting Balance Ability Normal Standing Balance and Reactions Static Standing Balance Ability Good Dynamic Standing Balance Ability Fair Device Used FWW M5 PT-IP Objective Assessments Start: 12/23/19 08:46 Freq: NEEDED Status: Active Protocol: Document 12/23/19 09:42 AW (Rec: 12/23/19 10:12 AW [id number]) Orientation Orientation/Cognition Level of Alertness Alert Orientation Name,Day of Week,Place, Situation Language Function Ability No Deficits Noted Safety Awareness Understands Safety Issues Memory Description No Deficits Noted Gross Range of Motion Upper Extremity ROM Assessment Within Functional Limits Lower Extremity ROM Assessment Within Functional Limits Strength Upper Extremity Strength Assessment Within Functional Limits Comments Strength Comments RLE grossly 4+/5 Coordination Assessment Gross Coordination Gross Coordination WNL Sensation Assessment Sensation Gross Sensation WNL M6 PT-IP Treatment Start: 12/23/19 08:46 Freq: NEEDED Status: Active Protocol: Document 12/24/19 08:12 SP (Rec: 12/24/19 11:42 SP [id number]) Physical Therapy Treatment Education Education Provided Precautions,Weight Bearing Status,Safety M7 PT-IP Assessment and Plan Start: 12/23/19 08:46 Freq: NEEDED Status: Active Protocol: Document 12/24/19 08:12 SP (Rec: 12/24/19 11:42 SP [id number]) PT Summary Assessment and Plan Potential Rehabilitation Potential Excellent Status of Condition at Evaluation Stable Summary Impairments Pain,ROM,Strength,Balance,Bed Mobility,Transfers,Gait, Activity Tolerance Assessment Summary See mobility comments. Pt required CGA- SBA during sit to stand, gait using FWW, Min step LHR and SPC/3 step mgt using fWW plateform and Mod for LLe into bed during sit to supine. Pt reported increae 8 /10 L knee pain during mobility. Educated patient importance of L knee flexion ROM within tolerance for functional mobilt and understanding but pain prevents her from performing. Nursing helping keep on top of assistance for pain to allow her ability to mobilize and cold pack. PT recommends she plan to either stay on the main level for the first few days or to use the outside path to access the basement. Once medically cleared, she will be safe to discharge to her brother and ghsipy-te-sdu' s home with their assist and with outpatient PT which is already set up. Pt would benefit from one more treatment to work on post op exercises/ ROM, gait distance progression and if family feel want to reassess stair mgt again, CGA-Min A required. Goals Bed Mobility Goal Independent Transfer Goal Independent,Front Wheeled Walker Gait Goal Independent,Front Wheel Walker Gait Distance 200 Other Goals - up/down 1 step with FWW SBA - practice stairs using R rail ascending and SPC for eventual stair climbing into her basement appt in d/c setting Days to Meet Goals 1 Frequency of Treatment Frequency Of Treatment Twice a Day Treatment Plan Physical Therapy Treatment Plan Bed Mobility Training,Transfer Training,Gait Training, Therapeutic Exercise,Balance Retraining,Post Op Education, Discharge Planning,Hot or Cold Pack,Neuromuscular Re-ed, Coordination Retraining,Manual Therapy Other Recommendations and Next Treatment post op exercises for Focus increased ROM, gait and stair training with family caregiving trng if family feels needed, CGA- Min A required. Recommendations To Nursing Amount of Assist Needed 1 Person Assist Discharge Recommendations PT Discharge Recommendations Home with Assistance, Outpatient PT Transportation Needs at Discharge Private Vehicle
[2019-12-24] MEDS: atenoloL 50 MG TABLET 100 MG PO (08:58)
[2019-12-24] MEDS: SODIUM CHLORIDE 0.9% FLUSH 10 ML IV ×2 (10:24→22:15)
[2019-12-24 11:55] VITALS: BP 147/73; PULSE 73; RESP 18; TEMP 37.1; O2SAT 94
[2019-12-24 16:03] VITALS: BP 147/74; PULSE 75; RESP 18; TEMP 36.4; O2SAT 96
--- NOTE | 2019-12-24 16:27 | CM.DPC ---
DCP: pt continued to work with PT today and [facility] has now finalized her d/c to home order for today. She will d/c to her brother and sister in law's home as per plan. Home this afternoon after all d/c paperwork is completed.
--- NOTE | 2019-12-24 16:55 | PT.IPTN ---
Current Diagnoses Unilateral primary osteoarthritis, left knee (12/23/19) Surgery Performed Operation Date: 12/22/19 13:00 Actual Procedures p Total Knee Arthroplasty(Left) - Celestino Daniels MD Physical Therapy Treatment Note M2 PT-IP Current Condition Start: 12/23/19 08:46 Freq: NEEDED Status: Active Protocol: Document 12/23/19 09:42 AW (Rec: 12/23/19 10:12 AW [id number]) Physical Therapy Current Condition Current Condition Evaluation Date 12/23/19 Treatment Diagnosis L TKA; impaired mobility Onset Date 12/22/19 Weight Bearing Status Weight Bearing Status Weight Bear as Tolerated M3 PT-IP Subjective Start: 12/23/19 08:46 Freq: NEEDED Status: Active Protocol: Document 12/24/19 16:12 LJ (Rec: 12/24/19 16:55 LJ [email or web address]) Subjective Physical Therapy Visit Type Type Treatment Note Visit Start Time 16:12 Visit Stop Time 16:32 Total Visit Minutes 20 Notes Pt in bathroom with nursing upon entering. Physical Therapy Visit Comments Patient Comments Pt states pain is very high due to not getting pain medic ation on time. Therapy Pain Assessment Pain When Pain Assessed At Rest Pain Present Pain Present Pain Reported M4 PT-IP Mobility and Gait Start: 12/23/19 08:46 Freq: NEEDED Status: Active Protocol: Document 12/24/19 16:12 LJ (Rec: 12/24/19 16:55 LJ [email or web address]) PT-Bed Mobility Assessment Supine to Sit Supine to Sit Moderate Assistance,1 Person Assistance,Head of Bed Elevated PT-Transfer Assessment Sit to and From Stand Sit to and from Stand Contact Guard Assistance,1 Person Assistance,Use of Upper Extremities Equipment Transfer Assistive Device Gait Belt,Front Wheeled Walker Orthotic/Prosthetic Devices or Brace: No Transfers Transfer Technique Pt ambulated using fWW Transfer Ability Level of Assist Contact Guard Assistance,Use of Upper Extremities Comments Mobility Comments Pt required heavy use of UEs and Astrid to lift herself off the toilet. Unable to flex knee past ~5 degrees. Pt attempted to put more weight onto LLE in standing unable to put foot flat on floor. Gait Assessment Gait Gait Assistance Required: Standby Assistance,Contact Guard Assist Distance (Feet) 15 Able to Maintain Weight Bearing Status Yes During Gait Assistive Devices Assistive Device Gait Belt,Front Wheeled Walker Orthotic/Prosthetic Devices or Brace: No Gait Deviations General Gait Pattern Antalgic,Decreased Stride Length,Decreased Feet Clearance,Flexed Trunk,Step-to Gait Factors Limiting Gait Function Factors Limiting Gait Function Decreased Activity Tolerance, Decreased Strength,Limited Range of Motion,Pain,Poor Balance Comments Gait Comments Pt ambulated from toilet to sink for hand washing. Unable to put foot flat while washing her hands. CGA for walking from sink to toilet. Pt unwilling to ambulate further in room due to pain. Advised pt to get upp and ambulate with nursing after dinner and try to increase distance. M5 PT-IP Objective Assessments Start: 12/23/19 08:46 Freq: NEEDED Status: Active Protocol: Document 12/23/19 09:42 AW (Rec: 12/23/19 10:12 AW [email or web address]) Orientation Orientation/Cognition Level of Alertness Alert Orientation Name,Day of Week,Place, Situation Language Function Ability No Deficits Noted Safety Awareness Understands Safety Issues Memory Description No Deficits Noted Gross Range of Motion Upper Extremity ROM Assessment Within Functional Limits Lower Extremity ROM Assessment Within Functional Limits Strength Upper Extremity Strength Assessment Within Functional Limits Comments Strength Comments RLE grossly 4+/5 Coordination Assessment Gross Coordination Gross Coordination WNL Sensation Assessment Sensation Gross Sensation WNL M6 PT-IP Treatment Start: 12/23/19 08:46 Freq: NEEDED Status: Active Protocol: Document 12/24/19 16:12 LJ (Rec: 12/24/19 16:55 [email or web address]) Physical Therapy Treatment Exercises Exercises Ankle Pumps,Gluteal Sets,Quad Sets,Heel Slides Education Education Provided Precautions,Weight Bearing Status,Safety Other Treatments Other Treatment Performed Attempted heel slides and quad sets after ambulation. Pt unable. Removed tracie wrap to perform flexion and extension exercises in bed. Pt unable to move knee into extension or flexion even with assist and wrap removed. Stated it was too painful. Advised pt to keep ice on knee throughout dinner then get up and walk with nursing and work on heel slides and quad sets as tolerated M7 PT-IP Assessment and Plan Start: 12/23/19 08:46 Freq: NEEDED Status: Active Protocol: Document 12/24/19 16:12 LJ (Rec: 12/24/19 16:55 LJ [email or web address]) PT Summary Assessment and Plan Potential Rehabilitation Potential Excellent Status of Condition at Evaluation Stable Summary Impairments Pain,ROM,Strength,Balance,Bed Mobility,Transfers,Gait, Activity Tolerance Assessment Summary Pt would benefit from one more treatment to work on post op exercises/ ROM, gait distance progression and, if family feels the need to, reassess stair mgt again, CGA-Min A required. Goals Bed Mobility Goal Independent Transfer Goal Independent,Front Wheeled Walker Gait Goal Independent,Front Wheel Walker Gait Distance 200 Other Goals - up/down 1 step with FWW SBA - practice stairs using R rail ascending and SPC for eventual stair climbing into her basement appt in d/c setting Days to Meet Goals 1 Frequency of Treatment Frequency Of Treatment Twice a Day Treatment Plan Physical Therapy Treatment Plan Bed Mobility Training,Transfer Training,Gait Training, Therapeutic Exercise,Balance Retraining,Post Op Education, Discharge Planning,Hot or Cold Pack,Neuromuscular Re-ed, Coordination Retraining,Manual Therapy Other Recommendations and Next Treatment post op exercises for Focus increased ROM, gait and stair training with family caregiving trng if family feels needed, CGA- Min A required. Recommendations To Nursing Amount of Assist Needed 1 Person Assist Discharge Recommendations PT Discharge Recommendations Home with Assistance, Outpatient PT Transportation Needs at Discharge Private Vehicle
[2019-12-24] MEDS: HYDROMORPHONE 2 MG TABLET PO ×2 (19:09→22:13)
[2019-12-24 20:00] VITALS: BP 145/79; PULSE 72; RESP 16; TEMP 36.8; O2SAT 95
[2019-12-24 23:00] VITALS: BP 138/72; PULSE 79; RESP 16; TEMP 37.2; O2SAT 92
--- NOTE | 2019-12-24 23:31 | PC.NURSE ---
Assumed care of pt at 1500. Pt resting in bed during bedside hand-off. Up with P.T.; Per P.T.A pt has not been able to mobilize much and could benefit from another day of in patient P.T. Pt states she has 15 stairs to go down once she gets home and she states I don't know if I am going to be able to make it down them. PA notified, discharge cancelled. Medication switched to Dilaudid PO, per PA order. Pt reports Dilaudid is more effective than oxycodone.
[2019-12-25] MEDS: OXYCODONE IR 5 MG TABLET 10 MG PO ×5 (03:37→13:53)
[2019-12-25] MEDS: IBUPROFEN 400 MG TABLET PO ×2 (03:37→12:14)
--- NOTE | 2019-12-25 04:12 | PC.NURSE ---
Pt. declined Dilaudid, requested 10 mg. of Oxycodone. Stated The Dilaudid makes me sick in my stomach. 10 mg. of Percolone admin. with Ibuprofen. Took pills with saltine crackers, will cont. POC & monitor.
[2019-12-25] MEDS: polyethylene glycoL 3350 17 GM POWD.PACK PO (05:51)
[2019-12-25 06:00] VITALS: BP 112/45; PULSE 63; RESP 16; TEMP 36.7; O2SAT 93
--- NOTE | 2019-12-25 06:46 | PC.NURSE ---
NO bowel movement since 12/21/19, states been drinking Prune juice, but no BM. Miralax admin. with 8 oz. of apple juice & encouraged to drink more fluids. Reported Lt. knee, feels much better today, I'm able to walked to the bathroom, without any excruciating pain. Will cont. POC & monitor.
[2019-12-25 08:00] VITALS: BP 145/70; PULSE 63; RESP 18; TEMP 36.6; O2SAT 95
--- NOTE | 2019-12-25 09:34 | PT.IPTN ---
Current Diagnoses Unilateral primary osteoarthritis, left knee (12/23/19) Surgery Performed Operation Date: 12/22/19 13:00 Actual Procedures p Total Knee Arthroplasty(Left) - Celestino Daniels MD Physical Therapy Treatment Note M2 PT-IP Current Condition Start: 12/23/19 08:46 Freq: NEEDED Status: Active Protocol: Document 12/23/19 09:42 AW (Rec: 12/23/19 10:12 AW [id number]) Physical Therapy Current Condition Current Condition Evaluation Date 12/23/19 Treatment Diagnosis L TKA; impaired mobility Onset Date 12/22/19 Weight Bearing Status Weight Bearing Status Weight Bear as Tolerated M3 PT-IP Subjective Start: 12/23/19 08:46 Freq: NEEDED Status: Active Protocol: Document 12/25/19 09:34 CLB (Rec: 12/25/19 13:49 CLB [email or web address]) Subjective Physical Therapy Visit Type Type Treatment Note Visit Start Time 09:34 Visit Stop Time 09:58 Total Visit Minutes 24 Number of LIFESTYLE DIRECTOR Visits 4 Physical Therapy Visit Comments Patient Comments Pt agreeable to do therapy. Therapy Pain Assessment Pain When Pain Assessed At Rest Pain Present Pain Present Pain Reported Location Left Anterior Knee Intensity 5 Scale Used Numeric (1 - 10) Pain Management Techniques Apply Cold,Modification of Treatment,Re-positioning, Timing of Activity with Medications M4 PT-IP Mobility and Gait Start: 12/23/19 08:46 Freq: NEEDED Status: Active Protocol: Document 12/25/19 09:34 CLB (Rec: 12/25/19 13:49 CLB [email or web address]) PT-Bed Mobility Assessment Supine to Sit Supine to Sit Standby Assistance,1 Person Assistance,Head of Bed Elevated Sit to Supine Sit to Supine Minimal Assistance,1 Person Assistance,Head of Bed Elevated PT-Transfer Assessment Comments Mobility Comments Pt performed ther ex in bed with assist for heel slide. Pt unable to flex knee past 10 degrees due to pain. Pt able to hook RLE under LLE and get legs to the EOB. Pt pain then increased to 8-9/10 and pt was unable to get OOB. Pt required Min A of LLE back onto bed and repositioned for comfort. Pt agreeable to perform out of bed activities after pain meds later today. Pt left in bed with all needs within reach. Gait Assessment Comments Gait Comments Unable due to pain. M5 PT-IP Objective Assessments Start: 12/23/19 08:46 Freq: NEEDED Status: Active Protocol: Document 12/23/19 09:42 AW (Rec: 12/23/19 10:12 AW [id number]) Orientation Orientation/Cognition Level of Alertness Alert Orientation Name,Day of Week,Place, Situation Language Function Ability No Deficits Noted Safety Awareness Understands Safety Issues Memory Description No Deficits Noted Gross Range of Motion Upper Extremity ROM Assessment Within Functional Limits Lower Extremity ROM Assessment Within Functional Limits Strength Upper Extremity Strength Assessment Within Functional Limits Comments Strength Comments RLE grossly 4+/5 Coordination Assessment Gross Coordination Gross Coordination WNL Sensation Assessment Sensation Gross Sensation WNL M6 PT-IP Treatment Start: 12/23/19 08:46 Freq: NEEDED Status: Active Protocol: Document 12/25/19 09:34 CLB (Rec: 12/25/19 13:49 CLB [email or web address]) Physical Therapy Treatment Exercises Exercises Ankle Pumps,Gluteal Sets,Quad Sets,Heel Slides,Straight Leg Raises Knee ROM Measurement 10 degrees Education Education Provided Precautions,Weight Bearing Status,Safety Other Treatments Other Treatment Performed Pt required AAROM for HS and SLR. Pt unable to tolerate SAQ due to pain. M7 PT-IP Assessment and Plan Start: 12/23/19 08:46 Freq: NEEDED Status: Active Protocol: Document 12/25/19 09:34 CLB (Rec: 12/25/19 13:49 CLB [email or web address]) PT Summary Assessment and Plan Potential Rehabilitation Potential Excellent Status of Condition at Evaluation Stable Summary Impairments Pain,ROM,Strength,Balance,Bed Mobility,Transfers,Gait, Activity Tolerance Assessment Summary Pt with increased pain getting out of bed, pt was assisted back to supine. Pt required AAROM for HS and SLR. Goals Bed Mobility Goal Independent Transfer Goal Independent,Front Wheeled Walker Gait Goal Independent,Front Wheel Walker Gait Distance 200 Other Goals - up/down 1 step with FWW SBA - practice stairs using R rail ascending and SPC for eventual stair climbing into her basement appt in d/c setting Days to Meet Goals 1 Frequency of Treatment Frequency Of Treatment Twice a Day Treatment Plan Physical Therapy Treatment Plan Bed Mobility Training,Transfer Training,Gait Training, Therapeutic Exercise,Balance Retraining,Post Op Education, Discharge Planning,Hot or Cold Pack,Neuromuscular Re-ed, Coordination Retraining,Manual Therapy Other Recommendations and Next Treatment gait/stairs training. Focus Recommendations To Nursing Amount of Assist Needed 1 Person Assist Discharge Recommendations PT Discharge Recommendations Home with Assistance,Home Health,Outpatient PT Other Discharge Recommendations Home with assist and HH vs OP PT Transportation Needs at Discharge Private Vehicle
[2019-12-25] MEDS: DOCUSATE 100 MG CAPSULE PO (09:35)
[2019-12-25] MEDS: atenoloL 50 MG TABLET 100 MG PO (09:35)
[2019-12-25] MEDS: ASPIRIN EC 81 MG TABLET PO (09:35)
[2019-12-25] MEDS: ACETAMINOPHEN 325 MG TABLET 650 MG PO ×2 (09:35→13:08)
[2019-12-25] MEDS: lisinopriL 20 MG TABLET 40 MG PO (09:35)
--- NOTE | 2019-12-25 09:48 | PM.PNPO.1 ---
Exam Vital Signs (past 8 hours): - 12/25/19 06:00 12/25/19 08:00 Temperature 98.1 F 97.8 F Pulse Rate 63 63 Respiratory Rate 16 18 Blood Pressure 112/45 L 145/70 H Pulse Oximetry 93 95 Oxygen Delivery Method Nasal Cannula Oxygen Flow Rate 0 Objective Labs Result Diagrams: 12/23/19 06:03 Assessment & Plan Post-op Postoperative Procedures: Procedures Operation Date: 12/22/19 13:00 Actual Procedures Side Surgeon p Total Knee Arthroplasty Left Celestino Daniels MD Quality VTE Deep Vein Thrombosis/Pulmonary Embolism Present on Admission: No
[2019-12-25] MEDS: SODIUM CHLORIDE 0.9% FLUSH 10 ML IV (09:49)
--- NOTE | 2019-12-25 10:38 | PT.IPTN ---
Current Diagnoses Unilateral primary osteoarthritis, left knee (12/23/19) Surgery Performed Operation Date: 12/22/19 13:00 Actual Procedures p Total Knee Arthroplasty(Left) - Celestino Daniels MD Physical Therapy Treatment Note M2 PT-IP Current Condition Start: 12/23/19 08:46 Freq: NEEDED Status: Active Protocol: Document 12/23/19 09:42 AW (Rec: 12/23/19 10:12 AW [id number]) Physical Therapy Current Condition Current Condition Evaluation Date 12/23/19 Treatment Diagnosis L TKA; impaired mobility Onset Date 12/22/19 Weight Bearing Status Weight Bearing Status Weight Bear as Tolerated M3 PT-IP Subjective Start: 12/23/19 08:46 Freq: NEEDED Status: Active Protocol: Document 12/25/19 10:38 CLB (Rec: 12/25/19 14:10 CLB [email or web address]) Subjective Physical Therapy Visit Type Type Treatment Note Visit Start Time 10:38 Visit Stop Time 11:09 Total Visit Minutes 31 Number of SEASONAL TAX PREPARER Visits 5 Physical Therapy Visit Comments Patient Comments Pt agreeable to do therapy. Therapy Pain Assessment Pain When Pain Assessed During Mobility Pain Present Pain Present Pain Reported Location Left Anterior Knee Intensity 5 Scale Used Numeric (1 - 10) Pain Management Techniques Apply Cold,Modification of Treatment,Re-positioning, Timing of Activity with Medications M4 PT-IP Mobility and Gait Start: 12/23/19 08:46 Freq: NEEDED Status: Active Protocol: Document 12/25/19 10:38 CLB (Rec: 12/25/19 14:10 CLB [email or web address]) PT-Transfer Assessment Sit to and From Stand Sit to and from Stand Standby Assistance,Use of Upper Extremities Equipment Transfer Assistive Device Gait Belt,Front Wheeled Walker Comments Mobility Comments Pt up in room with nursing upon arrival. GB placed on pt in standing. Pt ambulated to sink with cues to keep walker against sink and step into walker while at sink. Pt brushed her hair and teeth with good standing balance. Pt then ambulated to therapy stairs in [place], pt performed one set on platform step with FWW then one set of three stairs with rail SBA-CGA. Pt then ambulated back to room. Pt left in reclined chair, call light and all other needs within reach. Gait Assessment Gait Gait Assistance Required: Standby Assistance Distance (Feet) 250 Able to Maintain Weight Bearing Status Yes During Gait Assistive Devices Assistive Device Gait Belt,Front Wheeled Walker Gait Deviations General Gait Pattern Antalgic,Decreased Stride Length,Decreased Feet Clearance,Step-to Gait Factors Limiting Gait Function Factors Limiting Gait Function Decreased Activity Tolerance, Decreased Strength,Limited Range of Motion,Pain Comments Gait Comments Pt ambulated in jim[place] ~250ft w/ FWW/SBA, pt required cues for heel/toe with improvement. Pt has steady gait and good safety awareness. Stair Climbing Assessment Evaluation Level of Assist On Stairs Standby Assistance,Contact Guard Assistance Devices Stair Climbing Assistive Devices Front Wheel Walker,Left Railing,Right Railing Technique/Endurance Stair Climbing Direction Ascend and Descend Stair Climbing Technique Step to Step Number of Steps Climbed 4 Stair Climbing Set # Repetitions (reps) 2 Comments Stair Climbing Comments Pt climbed platform step with FWW/SBA, pt climbed three standard steps with bilateral rails SBA ascending and CGA descending. M5 PT-IP Objective Assessments Start: 12/23/19 08:46 Freq: NEEDED Status: Active Protocol: Document 12/23/19 09:42 AW (Rec: 12/23/19 10:12 AW [id number]) Orientation Orientation/Cognition Level of Alertness Alert Orientation Name,Day of Week,Place, Situation Language Function Ability No Deficits Noted Safety Awareness Understands Safety Issues Memory Description No Deficits Noted Gross Range of Motion Upper Extremity ROM Assessment Within Functional Limits Lower Extremity ROM Assessment Within Functional Limits Strength Upper Extremity Strength Assessment Within Functional Limits Comments Strength Comments RLE grossly 4+/5 Coordination Assessment Gross Coordination Gross Coordination WNL Sensation Assessment Sensation Gross Sensation WNL M6 PT-IP Treatment Start: 12/23/19 08:46 Freq: NEEDED Status: Active Protocol: Document 12/25/19 09:34 CLB (Rec: 12/25/19 13:49 CLB [email or web address]) Physical Therapy Treatment Exercises Exercises Ankle Pumps,Gluteal Sets,Quad Sets,Heel Slides,Straight Leg Raises Knee ROM Measurement 10 degrees Education Education Provided Precautions,Weight Bearing Status,Safety Other Treatments Other Treatment Performed Pt required AAROM for HS and SLR. Pt unable to tolerate SAQ due to pain. M7 PT-IP Assessment and Plan Start: 12/23/19 08:46 Freq: NEEDED Status: Active Protocol: Document 12/25/19 10:38 CLB (Rec: 12/25/19 14:10 CLB [email or web address]) PT Summary Assessment and Plan Potential Rehabilitation Potential Excellent Status of Condition at Evaluation Stable Summary Impairments Pain,ROM,Strength,Balance,Bed Mobility,Transfers,Gait, Activity Tolerance Assessment Summary Pt improving with all mobility as pt was able to ambulate ~ 250ft and climb stairs. Pt will d/c to brothers home with assist. Pt has one platform step to get into house, pt is able to stay on main floor and will not have to climb down steps at discharge. Pt would benefit from HH PT/OT services . Goals Bed Mobility Goal Independent Transfer Goal Independent,Front Wheeled Walker Gait Goal Independent,Front Wheel Walker Gait Distance 200 Other Goals - up/down 1 step with FWW SBA - practice stairs using R rail ascending and SPC for eventual stair climbing into her basement appt in d/c setting Days to Meet Goals 1 Frequency of Treatment Frequency Of Treatment Twice a Day Treatment Plan Physical Therapy Treatment Plan Bed Mobility Training,Transfer Training,Gait Training, Therapeutic Exercise,Balance Retraining,Post Op Education, Discharge Planning,Hot or Cold Pack,Neuromuscular Re-ed, Coordination Retraining,Manual Therapy Recommendations To Nursing Amount of Assist Needed 1 Person Assist Discharge Recommendations PT Discharge Recommendations Home with Assistance,Home Health,Outpatient PT Other Discharge Recommendations Home with assist and HH vs OP PT Transportation Needs at Discharge Private Vehicle
--- NOTE | 2019-12-25 10:56 | PC.NURSE ---
Addendum entered by Jocelyn Lake R.N. 12/25/19 14:53: Discharge: IV dc'd intact. Reviewed d/c instructions thoroughly with patient. Reviewed s/sx that would warrant a call to Dr Daniels and instructed how to get in touch with him. Dressing to L knee C/D/I at time of discharge, patient aware to keep as dry as possible and to call office if it needs to be changed for some reason. Patient verbalized understanding of d/c info and stated no further questions. All belongings sent with patient. Given script for Oxycodone. Wheeled out to private vehicle by nursing staff. Original Note: Shift summary: Awake and alert, oriented X3. Dressing to L knee C/D/I. L knee swollen, stiff, CMS+ WNL otherwise. Reports L knee pain much better today than it was, managing with PRN Oxycodone, Ibuprofen and scheduled Tylenol. Patient hopeful she may get to go home today. Walking in [place] with PT, headed to work on the stairs.
--- NOTE | 2019-12-25 11:31 | PM.DS.1 ---
History of Present Illness History of Present Illness Date Patient Seen: 12/25/19 Time Patient Seen: 09:15 Chief complaint: [id number] *OPB* Copay $200 Narrative: POD #3 s/p LTKA with Dr. Daniels. Patient complains of mild-moderate pain in left knee. Patient states the pain in her knee has improved significantly. Voiding without difficulty or assistance. Mobilizing better with PT. Denies fever, chills, dry cough, chest pain, shortness of breath, nausea, vomiting Discharge Providers Provider Date of admission: 12/23/19 15:00 Discharge Date: 12/25/19 Consults: 12/22/19 06:00 Consult to Anesthesiology Routine Comment: Consulting Provider: Anesthesiologist Reason for consultation: Regional block for post operative pain control 12/22/19 16:00 Consult to Discharge Planning Routine Comment: Consult to Physical Therapy Evaluate & Treat Comment: Physician Instructions: postop TKA protocol Consult to Respiratory Therapy Evaluate & Treat Comment: Physician Instructions: Evaluate and treat Discharge provider: Norma Mendieta PA-C Summary Hospital Course Discharge Diagnosis: s/p LTKA alcohol abuse anemia depression herpes hypertension migraine osteoarthritis paroxysmal ventricular tachycardia Hospital Course: Indications: Left knee OA Patient admitted to hospital s/p LTKA with Dr. Daniels. POD #3 patient was ready for discharge home with home health. Hospital course was notable for slow progression with PT secondary to pain, which resolved on POD3. Patient was mobilizing with PT prior to discharge. Voiding and eating without difficulty or assistance prior to discharge. Pain was under control prior to discharge. Patient has prescription for oxycodone at home. ASA 81mg BID for DVT prophylaxis. Status at Discharge Cognitive/behavioral status at discharge: oriented Functional status at discharge: uses cane/walker Overall status at discharge: patient is progressing back to baseline Time Spent with Patient Time spent: Less than 30 minutes Exam Vital Signs (past 8 hours): - 12/25/19 06:00 12/25/19 08:00 Temperature 98.1 F 97.8 F Pulse Rate 63 63 Respiratory Rate 16 18 Blood Pressure 112/45 L 145/70 H Pulse Oximetry 93 95 Oxygen Delivery Method Room Air Oxygen Flow Rate 0 Narrative Exam Narrative: 69 yo F is standing with PT, in no apparent distress. A&Ox3. Dressing CDI. Able to plantar flex/dorsiflex BL. Sensory function grossly intact to light touch in LE BL. Calves warm, soft, compressible NTTP. Dorsalis pedis 2+ BL. Objective Labs Result Diagrams: 12/23/19 06:03 Discharge Plan Discharge Plan Patient Disposition: Home Health Service Discharge orders & Medications Prescriptions: New oxycodone 5 mg tablet 5 mg PO Q4-6H PRN (Reason: pain) Qty: 20 RF: 0 aspirin 81 mg tablet,delayed release (DR/EC) 81 mg PO BID Qty: 90 RF: 0 acetaminophen [Tylenol Extra Strength] 500 mg tablet 500 mg PO Q4H PRN (Reason: pain) Qty: 60 RF: 0 ibuprofen 400 mg Tablet 400 mg PO Q4H PRN (Reason: Pain, Moderate (4-6)) Qty: 40 RF: 0 docusate sodium [DOK] 100 mg Capsule 100 mg PO BID Qty: 40 RF: 0 Continued atenolol 100 mg Tablet 100 mg PO DAILY RF: 0 lisinopril-hydrochlorothiazide 20-12.5 mg Tablet 2 tab PO DAILY RF: 0 Follow up/Referrals: Celestino Daniels MD [Physician] - Diet/Activity/Treatments Diet: Regular Activity: Weight bearing as tolerated. Use a front wheel walker or cane for fall prevention. Follow guide provided preop for exercises. Cold/Heat Therapy: Ice and elevate the knee at regular intervals. Allow the skin to return to room temperature between icing. Skin/Wound/Dressing Care Report to your healthcare provider any signs of infection, such as:: chills, fever, increased pain, unusual drainage and unusual redness Dressing: Aquacel dressing is to remain in place. It is ok to shower with this dressing but do not soak (e.g. bath). Contact the office for dressing changes if this becomes saturated or soiled. Visit Report/Discharge Packet Instructions: DI for Knee Replacement, DI for Prescription Opioid Use, Stool Softeners, Oxycodone, Aspirin Stand Alone Forms: Surgery Discharge Discharge Data Attending Provider: Celestino Daniels Admit Date/Time: 12/23/19 15:00 Quality VTE Deep Vein Thrombosis/Pulmonary Embolism Present on Admission: No
--- NOTE | 2019-12-25 13:55 | CM.DPC ---
Addendum entered by Maryam Altman R.N. 12/25/19 15:46: Perez from [facility] called this major case detective back. She mentioned that they will be in contact with [facility] in her area, and will call this major case detective back tomorrow. Stated that since she starts with [facility] in [place], she should be able to convert over to [facility] in the [place] area when she returns there. She will also reach out to patient. Will still save paper work and expect Perez's call tomorrow. Addendum entered by Maryam Altman R.N. 12/25/19 15:33: Left another message with [facility] at [phone], option 1. In the message, included patient's name and [facility] number, and let them know that clinical information was sent as well, and that patient will be in [place]. Addendum entered by Maryam Altman R.N. 12/25/19 14:25: Faxed face sheet, face to face, but indicated that it is not yet signed. Also, sent address of where patient will be. Her address is: [address] [place] [address]. Also sent latest P.T. notes, DC summary, and operative report. On fax, indicated that message has been left on [facility] phone, and that patient is discharging today. Will hold face sheet, should [facility] call back, as well as patient. Will also hold copy of face to face for signature. Original Note: DCP Cont: Received a message that patient wanted to discuss home health at discharge. Spoke with Tamara, orthopedic PAC. He mentioned that he was having difficulty discharging patient due to the stairs to get in to her home. Mentioned that patient may need ambulance transport, but patient is wanting to go to [place] to stay with family. Stated that transportation can be spendy, and would need to contact [facility] transport. Did mention home health, but need orthopedic MD, Dr. Daniels, to sign face to face. Gave Tamara a face to face filled out, and he will attempt to get Dr. Daniels to sign it. Kept a copy here in the office. Spoke to patient, and she stated that she has a niece that will be transporting her to [place], for she will be staying down there with family for approximately a week. Patient is originally from [place]. Patient is wanting home health for P.T services. Called [facility], spoke to Tatiana Gomez, her major case detective. Stated that due to patient being in [place], a [facility] authorization for home health will be needed by this major case detective, since it is out of the area. Gave this major case detective a phone number of: [phone]. Left [facility] a message and information. Have a fax number of: [phone]. In the [facility] message, it states that they use their own home health services. There was another number given for review services for authorization. This number is: [phone]. Left a message on this number as well. This number stated that there was no availabilities on the week-end, but the other phone number stated that they are there 7 days a week. Will go ahead and fax clinicals to them. Have continued to update patient. She stated, I really need therapy soon, hopefully this can get authorized. Let her know that this major case detective already left a message with [facility]. Patient has load planner's phone number, and can call to follow up. Plan is for discharge today. During conversation, mentioned that [facility] would most likely not cover shelter secondary to this being elective surgery with no complications. P: Patient is to be discharged home today with family. Will fax [facility] information including P.T. notes. Maryam Altman RN/Ancillary Specialist
--- NOTE | 2019-12-26 08:41 | CM.DPC ---
DCP Cont: Was able to get in contact with Dr. Daniels, orthopedist, and had him sign face to face for home health. Faxed over face to face to [facility], with his signature. Patient was discharged yesterday, and staying with family in [place]. P: Perez from [facility] is working on getting patient set up with [facility]. When she returns to [place], she will be able to transition over to [facility] in that area. Maryam Altman RN/Supervisor Logging
== END 2019-12-25 14:56 | disposition home health service (06) ==
LOC: OR 15:29
PROVIDERS: Admitting Provider Orthopaedic Surgery Adult Reconstructive Orthopaedic Surgery; Referring Provider Orthopaedic Surgery Adult Reconstructive Orthopaedic Surgery; Visit Provider Orthopaedic Surgery Adult Reconstructive Orthopaedic Surgery
PROC: 0SRD0JZ Replacement of Left Knee Joint with Synthetic Substitute, Open Approach (ICD-10-PCS; CPT 27447; principal; 2019-12-22 13:00)
DX: M17.12 Unilateral primary osteoarthritis, left knee (principal); I10 Essential (primary) hypertension; D64.9 Anemia, unspecified; I47.2 Ventricular tachycardia
CPT/HCPCS: 27447; 36415; 73560; 85014; 85018; 85025; 94760; 97110; 97116; 97161; 97530; C1776; G0378; J0690; J1170; J1885; J2250; J2270; J2274; J2405; J2704; J2765